=== PATIENT | female | born 1970 | race Caucasian/White ===

== ENCOUNTER 2017-12-30 12:29 | Emergency (ER) | payer BC ==
[~2017-12-30] VITALS: Ht 167.6 cm; Wt 54.4 kg
[2017-12-30 12:56] LABS: ABSOLUTE BASOPHIL COUNT 0 /CUMM (0.0-0.2); ABSOLUTE EOSINOPHIL COUNT 0 /CUMM (0.0-0.7); ABSOLUTE GRANULOCYTE CT 7.4 /CUMM (1.4-6.5); ABSOLUTE LYMPH COUNT 1.7 /CUMM (1.2-3.4); ABSOLUTE MONOCYTE COUNT 0.2 /CUMM (0.10-0.60); BASOPHIL % 0.3 % (0.0-2.0); EOSINOPHIL % 0.3 % (0-5); GRANULOCYTE % 79.7 % (42.2-75.2); HEMATOCRIT 40.3 % (37-47); MEAN CORPUSCULAR HGB 28.3 PG (27.0-31.0); MEAN CORPUSCULAR HGB CONC 32.7 G/DL (33.0-37.0); MEAN CORPUSCULAR VOLUME 86.5 FL (81.0-99.0); MEAN PLATELET VOLUME 7.1 FL (7.4-10.4); PLATELET COUNT 324 /CUMM (130-400); RBC DISTRIBUTION WIDTH 17.2 % (11.5-14.5); RED BLOOD CELL CT 4.66 /CUMM (4.20-5.40); WHITE BLOOD CELL COUNT 9.3 /CUMM (4.8-10.8)
--- NOTE | 2017-12-30 13:20 | RADIOLOGY REPORT ---
EXAMINATION: XR CHEST CLINICAL INFORMATION: Chest pain COMPARISON: None TECHNIQUE: 2 views of the chest were obtained. FINDINGS: The lungs are well expanded. There is no focal consolidation, edema, or effusion. No pneumothorax. The cardiomediastinal silhouette is within normal limits. No acute osseous abnormality. IMPRESSION: No acute pulmonary findings.
--- NOTE | 2017-12-30 14:23 | ED CARDIAC/CP/PALPITATIONS ---
History of Present Illness General Chief Complaint: Chest Pain Stated Complaint: CHEST PAIN RADIATING IN L ARM AND NECK Source: patient, old records Exam Limitations: no limitations Vital Signs & Intake/Output Vital Signs & Intake/Output Vital Signs Date Time Temp Pulse Resp B/P B/P Pulse O2 O2 Flow FiO2 Mean Ox Delivery Rate 12/30 1431 98 Room Air 12/30 1241 97.4 84 18 123/87 99 Room Air Allergies Coded Allergies: promethazine (Severe, SEIZURES 12/30/17) Triage Note: PT TO ER C/C LEFT SIDED CHEST PRESSURE/SHARPNESS X 1 DAY. HX MVP AND PERICARDITIS (IN PAST). STATES PAIN WORSE WHEN LEANING FORWARD OR LAYING FLAT. + MILD SOB. DENIES FEVERS OR RECENT ILLNESS. EKG COMPLETE UPON ARRIVAL Triage Nurses Notes Reviewed? yes HPI: PT PRESENTS WITH SHARP PAIN UNDER LEFT BREAST THAT STARTED YESTERDAY MORNING. THE PAIN HAS BEEN CONSTANT ALL DAY AND SHE HAD DIFFICULTY SLEEPING L;AST NIGHT SECONDARY TO THE PAIN. THIS MORNING THE PAIN BEGAN TO RADIATE TO HER BACK AND LEFT ARM. THAT PAIN IS CONSTANT AND WORSENS WHEN SHE LAYS DOWN. SHE RATES THE PAIN AT 8 OUT OF 10. SHE DENIES SHORTNESS OF BREATH. THE ARE NO FEVERS OR CHILLS. SHE STATES SAMSON SHE HAS HAD PERICARDITIS IN THE PAST BUT THAT PAIN WAS TOTALLY DIFFERENT. Past History Travel History Traveled to [place] past 21 day No Medical History Any Pertinent Medical History? 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 No Review of Systems Review of Systems Constitutional: Reports: no symptoms. EENTM: Reports: no symptoms. Respiratory: Reports: no symptoms. Cardiovascular: Reports: see HPI, chest pain. GI: Reports: no symptoms. Genitourinary: Reports: no symptoms. Musculoskeletal: Reports: no symptoms. Skin: Reports: no symptoms. Neurological/Psychological: Reports: no symptoms. Hematologic/Endocrine: Reports: no symptoms. Immunologic/Allergic: Reports: no symptoms. All Other Systems: Reviewed and Negative Physical Exam Physical Exam General Appearance: well developed/nourished, alert, awake, anxious, moderate distress Head: atraumatic, normal appearance Eyes: Bilateral: PERRL, EOMI. Ears, Nose, Throat: normal pharynx, normal ENT inspection, hearing grossly normal Neck: normal inspection, supple, full range of motion Respiratory: normal breath sounds, chest non-tender, no respiratory distress, lungs clear Cardiovascular: regular rate/rhythm, normal peripheral pulses Gastrointestinal: normal bowel sounds, soft, non-tender Back: normal inspection, normal range of motion Extremities: normal inspection, normal capillary refill, normal range of motion, no edema Neurologic/Psych: no motor/sensory deficits, awake, alert, oriented x 3, normal gait, normal mood/affect Skin: intact, normal color Core Measures ACS in differential dx? Yes CVA/TIA Diagnosis No Sepsis Present: No Sepsis Focused Exam Completed? No Progress Differential Diagnosis: AMI, aortic dissection, atrial fibrillation, cholecystitis, costochondritis, musculoskeletal pain, myocarditis, pericarditis, pneumonia, pneumothorax, pulmonary embolism Plan of Care: Orders Procedure Date/time Status TROPONIN LEVEL 12/30 1514 Complete EKG 12/30 1514 Active Add-on Test (ER Only) 12/30 1421 Active TROPONIN LEVEL 12/30 1242 Complete HUMAN BETA HCG SCREEN 12/30 1242 Complete COMPREHENSIVE METABOLIC PANEL 12/30 1242 Complete CBC WITHOUT DIFFERENTIAL 12/30 1242 Complete D-DIMER 12/30 1240 Complete EKG 12/30 1230 Active Laboratory Tests 12/30/17 1535: Troponin I < 0.01 12/30/17 1240: Anion Gap 11, Estimated GFR > 60, BUN/Creatinine Ratio 15.0, Glucose 84, Calcium 9.8, Total Bilirubin 0.7, AST 19, ALT 26, Alkaline Phosphatase 48, Troponin I < 0.01, Total Protein 7.7, Albumin 4.5, Globulin 3.2, Albumin/Globulin Ratio 1.4, Total Beta HCG NEGATIVE, D-Dimer High Sensitivty < 200, CBC w Diff NO MAN DIFF REQ, RBC 4.66, MCV 86.5, MCH 28.3, MCHC 32.7 L, RDW 17.2 H, MPV 7.1 L, Gran % 79.7 H, Lymphocytes % 18.0 L, Monocytes % 1.7, Eosinophils % 0.3, Basophils % 0.3, Absolute Granulocytes 7.4 H, Absolute Lymphocytes 1.7, Absolute Monocytes 0.2, Absolute Eosinophils 0, Absolute Basophils 0 Diagnostic Imaging: Viewed by Me: Radiology Read. Discussed w/RAD: Radiology Read. CXR Impression: PATIENT: LISETH TRACEY PRESENT AGE: 47 PATIENT ACCOUNT NO: [id number] : 71 LOCATION: [facility] ORDERING PHYSICIAN: Kush Bullock DO (TBS) SERVICE DATE: 12/30/17 EXAM TYPE: RAD - XRY- CHEST XRAY, TWO VIEWS EXAMINATION: XR CHEST CLINICAL INFORMATION: Chest pain COMPARISON: None TECHNIQUE: 2 views of the chest were obtained. FINDINGS: The lungs are well expanded. There is no focal consolidation, edema, or effusion. No pneumothorax. The cardiomediastinal silhouette is within normal limits. No acute osseous abnormality. IMPRESSION: No acute pulmonary findings. DICTATED BY: Juan Li MD DATE/TIME DICTATED:12/30/171314 COMFORT STATION SUPERVISOR: JOEY DATE/TIME TRANSCRIBED:12/30/171314 CONFIDENTIAL, DO NOT COPY WITHOUT APPROPRIATE AUTHORIZATION. <Electronically signed in Other Vendor System> SIGNED BY: Jen GREENWOOD,Juan 12/30/17 1320 Initial ED EKG: NSR, no ST T wave changes Prior EKG: unchanged Repeat EKG: unchanged Comments: NO CHANGE FROM IM TORADOL. WILL CHECK SECOND TROP AND EKG. IF NEGATIVE, DISCHARGE AND CARDIOLOGY FOLLOW UP. THIS HAS BEEN DISCUSSED WITH THE PATIENT AND QUESTIONS HAVE BEEN ANSWERED. Departure Departure Disposition: HOME OR SELF CARE Condition: Stable Clinical Impression Primary Impression: Chest pain, unspecified Qualifiers: Chest pain type: other chest pain Qualified Code: R07.89 - Other chest pain Referrals: Aleyda GREENWOOD,Tariq Chinchilla MD,[place] (PCP/Family) Additional Instructions: RETURN IF SYMPTOMS WORSEN OR FOR ANY CONCERNS Departure Forms: Customer Survey General Discharge Information Prescriptions: Current Visit Scripts Oxycodone HCl/Acetaminophen (Percocet 5-325 MG Tablet) 1-2 TAB PO Q6P PRN PAIN #20 TAB Critical Care Note Critical Care Note Critical Care Time: non-applicable
[2017-12-30] MEDS ORDERED: PERCOCET 5-3251 EACH PO (16:36)
[2017-12-30 16:40] VITALS: BP 123/67
== END 2017-12-30 16:41 ==
LOC: ERH 12:29
PROVIDERS: Emergency Medicine
DX: R07.9 Chest pain, unspecified (principal)
CPT/HCPCS: 71046; 93005; 93010; 96372; J1885